=== PATIENT | male | born 1975 | race Caucasian/White ===

== ENCOUNTER 2021-08-30 11:08 | Emergency (ER) | payer MEDICAID ==
[~2021-08-30] VITALS: Ht 182.9 cm; Wt 59.0 kg
[2021-08-30 11:11] VITALS: BP 155/119
[2021-08-30] MEDS ORDERED: ACETAMINOPHEN 325MG TABLET PO STA (11:40)
== END 2021-08-30 15:44 | disposition left against medical advice (07) ==
LOC: ER 11:08
DX: R10.31 Right lower quadrant pain (principal); R94.31 Abnormal electrocardiogram [ECG] [EKG]
CPT/HCPCS: 93005; 99283

== ENCOUNTER 2021-09-06 09:30 | Emergency (ER) | payer MEDICAID ==
[~2021-09-06] VITALS: Ht 182.9 cm; Wt 73.0 kg
[2021-09-06 10:24] VITALS: BP 152/107
[2021-09-06] MEDS ORDERED: MORPHINE SULFATE 4 MG/ML CPJ (NOT FOR IM USE) IV STA (10:28)
[2021-09-06] MEDS ORDERED: ONDANSETRON HCL 4MG/2ML INJ IV STA (10:28)
[2021-09-06] MEDS ORDERED: SODIUM CHLORIDE 0.9% 1,000 ML IV ONE (10:30)
== END 2021-09-06 13:40 | disposition left against medical advice (07) ==
LOC: ER 09:30
DX: Z20.822 Contact with and (suspected) exposure to COVID-19 (principal); R10.31 Right lower quadrant pain
CPT/HCPCS: J7030

== ENCOUNTER 2023-09-21 21:18 | Emergency (ER) | payer MEDICAID ==
[~2023-09-21] VITALS: Ht 177.8 cm; Wt 80.0 kg
[2023-09-21 21:48] VITALS: TEMP 97.5; O2SAT 99
[2023-09-21 23:04] LABS: EOSINOPHILS % 2.5 % (0.0-5.0); HEMATOCRIT. 40.4 % (42.0-52.0); HEMOGLOBIN. 13.3 g/dL (14.0-18.0); LYMPHOCYTES % 14.6 % (20.0-50.0); MEAN CORPUSCULAR HEMOGLOBIN 29.8 pg (28.0-32.0); MEAN CORPUSCULAR HGB CONC 32.9 g/dL (31.0-37.0); MEAN CORPUSCULAR VOLUME 90.8 fL (80.0-94.0); MEAN PLATELET VOLUME 7.2 fl (7.4-10.4); MONOCYTES % 10.1 % (2.0-8.0); NEUTROPHILS % 71.8 % (40.0-76.0); PLATELET 342 x1000/uL (130-400); RED BLOOD CELL COUNT 4.45 mill/uL (4.7-6.1); RED CELL DISTRIBUTION WIDTH 13.7 % (11.6-14.6); WHITE BLOOD COUNT 7.9 x1000/uL (4.5-11.0)
[2023-09-21 23:09] LABS: CHLORIDE 107 mEq/L (98-107); POTASSIUM 3.4 mEq/L (3.5-5.1); SODIUM 141 mEq/L (136-145)
[2023-09-21 23:10] LABS: CALCIUM 9.2 mg/dL (8.7-10.4); CARBON DIOXIDE 25 mEq/L (21-32)
[2023-09-21 23:15] LABS: CREATININE 0.9 mg/dL (0.6-1.3); GLUCOSE 76 mg/dL (70-105); UREA NITROGEN BLOOD 17 mg/dL (9-23)
[2023-09-21 23:18] LABS: TROPONIN I HIGH SENSITIVITY < 4 ng/L (3.0-53)
[2023-09-22] MEDS ORDERED: ASPIRIN 81MG TABLET PO ONE (01:00)
[2023-09-22 01:27] LABS: TROPONIN I HIGH SENSITIVITY < 4 ng/L (3.0-53)
[2023-09-22 03:41] VITALS: BP 127/79; PULSE 82; RESP 16
[2023-09-22] MEDS: ASPIRIN 81MG TABLET PO NR (03:57)
== END 2023-09-22 06:06 | disposition home or self-care (01) ==
LOC: ER 21:18
DX: R55 Syncope and collapse (principal); R42 Dizziness and giddiness; I10 Essential (primary) hypertension; Z88.0 Allergy status to penicillin
CPT/HCPCS: 80048; 82962; 83880; 85025; 84484 ×2; 36415 ×2; 71045; 93005; 99285; Z7610

== ENCOUNTER 2024-08-28 17:05 | Emergency (ER) | payer MEDICAID, OTHER ==
[~2024-08-28] VITALS: Ht 182.9 cm; Wt 87.0 kg
[2024-08-28 17:08] VITALS: O2SAT 98
[2024-08-28 18:34] VITALS: BP 160/114; PULSE 116; RESP 18; TEMP 36.8; O2SAT 98
== END 2024-08-28 18:36 | disposition home or self-care (01) ==
LOC: ER 17:05
DX: R11.2 Nausea with vomiting, unspecified (principal); T43.615A Adverse effect of caffeine, initial encounter; F15.10 Other stimulant abuse, uncomplicated; I10 Essential (primary) hypertension; Z87.891 Personal history of nicotine dependence; Z88.0 Allergy status to penicillin; Y92.89 Other specified places as the place of occurrence of the external cause
CPT/HCPCS: 99283

== ENCOUNTER 2025-01-29 14:32 | Emergency (ER) | payer MEDICAID ==
[~2025-01-29] VITALS: Ht 180.3 cm; Wt 75.0 kg
[2025-01-29 14:34] VITALS: O2SAT 97
[2025-01-29] MEDS ORDERED: ONDANSETRON HCL 4MG/2ML INJ IV ONE (15:15)
[2025-01-29] MEDS ORDERED: LEVOFLOXACIN 500MG PREMIX 100 ML IV ONE (16:30)
[2025-01-29] MEDS: MORPHINE SULFATE 4 MG/ML INJ (FOR IV/IM USE) IV ONE (16:37)
[2025-01-29 16:58] LABS: BASOPHILS % 0.3 % (0.0-2.0); EOSINOPHILS % 0.3 % (0.0-5.0); HEMATOCRIT. 45.4 % (42.0-52.0); HEMOGLOBIN. 15.3 g/dL (14.0-18.0); LYMPHOCYTES % 11.0 % (20.0-50.0); MEAN PLATELET VOLUME 7.6 fl (7.4-10.4); MONOCYTES % 6.8 % (2.0-8.0); NEUTROPHILS % 81.6 % (40.0-76.0); PLATELET 395 x1000/uL (130-400); RED BLOOD CELL COUNT 5.17 mill/uL (4.7-6.1); RED CELL DISTRIBUTION WIDTH 13.4 % (11.6-14.6)
[2025-01-29 17:14] LABS: CREATININE 1.0 mg/dL (0.6-1.3); UREA NITROGEN BLOOD 14 mg/dL (9-23)
[2025-01-29 17:16] LABS: ASPARTATE AMINOTRANSFERASE 19 IU/L (<34); BILIRUBIN DIRECT 0.2 mg/dL (<=3.0); BILIRUBIN TOTAL 0.8 mg/dL (0.1-1.0); PROTEIN TOTAL 7.4 g/dL (6.0-8.3)
[2025-01-29] MEDS: CEFTRIAXONE SODIUM 500MG VIAL IV ONE (17:25)
[2025-01-29] MEDS: ONDANSETRON HCL 4MG/2ML INJ IV SCH (17:30)
[2025-01-29] MEDS: SODIUM CHLORIDE 0.9% 1,000 ML IV ONE (17:31)
[2025-01-29] MEDS ORDERED: IBUP-2028 MT (18:39)
[2025-01-29] MEDS ORDERED: DOXY150T9 MT (18:39)
[2025-01-29 19:28] LABS: CLARITY URINE CLOUDY (CLEAR); COLOR URINE YELLOW (YELLOW); GLUCOSE URINE NEGATIVE (NEGATIVE); KETONES URINE 1+ (NEGATIVE); LEUKOCYTE ESTERASE URINE NEGATIVE (NEGATIVE); NITRITE URINE NEGATIVE (NEGATIVE); OCCULT BLOOD URINE NEGATIVE (NEGATIVE); PH URINE 7.0 (4.5-8.0); PROTEIN URINE 1+ (NEGATIVE); SPECIFIC GRAVITY URINE 1.026 (1.005-1.030); UROBILINOGEN URINE 1.0 E.U./dL (0.2-1.0)
[2025-01-29] MEDS: LEVOFLOXACIN 500MG PREMIX 100 ML IV SCH (19:32)
[2025-01-29 19:36] LABS: *AMPHETAMINES SCREEN URINE PRESUMPTIVE POSITIVE (NEGATIVE); *BARBITURATES SCREEN URINE NEGATIVE (NEGATIVE); *BENZODIAZEPINES SCREEN URINE NEGATIVE (NEGATIVE); *COCAINE SCREEN URINE NEGATIVE (NEGATIVE); CANNABINOID URINE SCREEN NEGATIVE (NEGATIVE); ECSTASY MDMA SCREEN URINE CONF.TEST INDICATED (NEGATIVE); METHADONE URINE SCREEN NEGATIVE (NEGATIVE); OPIATES URINE SCREEN PRESUMPTIVE POSITIVE (NEGATIVE); PHENCYCLIDINE URINE SCREEN NEGATIVE (NEGATIVE)
[2025-01-29 19:42] LABS: BACTERIA URINE 1+; RBC URINE 0-2 /hpf (0-2); SQUAMOUS EPITHELIAL CELL URINE 1+ /lpf (RARE/1+); WBC URINE 0-2 /hpf (0-2)
[2025-01-29 20:42] VITALS: BP 150/100; PULSE 102; RESP 15; TEMP 36.9; O2SAT 99
== END 2025-01-29 20:44 | disposition home or self-care (01) ==
LOC: ER 14:58 → CANBEDREQ 18:32 → ER 20:44
DX: N45.3 Epididymo-orchitis (principal); F15.90 Other stimulant use, unspecified, uncomplicated; I10 Essential (primary) hypertension; Z59.00 Homelessness unspecified; Z79.899 Other long term (current) drug therapy; Z88.0 Allergy status to penicillin
CPT/HCPCS: 80076; 80305; 80048; 81003; 80320; 83690; 85025; 87086; 36415; 74176; 93976; 76870; 96361; 96365; 96375; 99285; J1956; J0696; J2270; J7030; J2405; G0480

== ENCOUNTER 2025-03-13 21:36 | Emergency (ER) | payer MEDICAID ==
[~2025-03-13] VITALS: Ht 177.8 cm; Wt 82.0 kg
[~2025-03-13 21:36] MED LIST: DOXY150T9 MT; IBUP-2028 MT
[2025-03-13 21:40] VITALS: O2SAT 98
[2025-03-13] MEDS: ACETAMINOPHEN 325MG TABLET PO ONE (23:03)
[2025-03-13] MEDS: KETOROLAC 15MG/ML VIAL IM ONE (23:05)
[2025-03-13 23:37] LABS: BASOPHILS % 0.7 % (0.0-2.0); EOSINOPHILS % 0.6 % (0.0-5.0); HEMATOCRIT. 42.3 % (42.0-52.0); HEMOGLOBIN. 14.2 g/dL (14.0-18.0); LYMPHOCYTES % 13.8 % (20.0-50.0); MEAN PLATELET VOLUME 7.5 fl (7.4-10.4); MONOCYTES % 9.1 % (2.0-8.0); NEUTROPHILS % 75.8 % (40.0-76.0); PLATELET 344 x1000/uL (130-400); RED BLOOD CELL COUNT 4.84 mill/uL (4.7-6.1); RED CELL DISTRIBUTION WIDTH 13.7 % (11.6-14.6)
[2025-03-13 23:46] LABS: CREATININE 1.0 mg/dL (0.6-1.3); UREA NITROGEN BLOOD 17 mg/dL (9-23)
[2025-03-13 23:48] LABS: ASPARTATE AMINOTRANSFERASE 21 IU/L (<34); BILIRUBIN DIRECT 0.3 mg/dL (<=3.0)
[2025-03-13 23:49] LABS: BILIRUBIN TOTAL 1.1 mg/dL (0.1-1.0); PROTEIN TOTAL 7.6 g/dL (6.0-8.3)
[2025-03-13] MEDS ORDERED: IBUP-1455 MT (23:58)
[2025-03-14 00:08] VITALS: BP 154/105; PULSE 85; RESP 16; TEMP 37.1; O2SAT 100
== END 2025-03-14 00:20 | disposition home or self-care (01) ==
LOC: ER 21:36
DX: R10.30 Lower abdominal pain, unspecified (principal); Z59.00 Homelessness unspecified; Z79.899 Other long term (current) drug therapy; Z88.0 Allergy status to penicillin; Y09 Assault by unspecified means; Y93.89 Activity, other specified; Y92.89 Other specified places as the place of occurrence of the external cause; Y99.8 Other external cause status
CPT/HCPCS: 80076; 80048; 83690; 85025; 36415; 74176; 96372; 99285; J1885; Z7610 ×2